=== PATIENT | female | born 1990 | race Caucasian/White ===

== ENCOUNTER 2019-04-29 17:44 | Emergency (ER) | payer MEDICAID ==
[~2019-04-29] VITALS: Ht 154.9 cm; Wt 56.0 kg
[2019-04-29] MEDS ORDERED: ACETAMINOPHEN 325MG TABLET PO PRN (21:30)
[2019-04-29 22:51] LABS: BASOPHILS % 0.3 % (0.0-2.0); EOSINOPHILS % 0.3 % (0.0-5.0); HEMATOCRIT. 37.8 % (36.0-48.0); HEMOGLOBIN. 12.5 g/dL (12.0-16.0); LYMPHOCYTES % 32.3 % (20.0-50.0); MEAN CORPUSCULAR HEMOGLOBIN 29.2 pg (28.0-32.0); MEAN CORPUSCULAR VOLUME 88.3 fL (81.0-99.0); MEAN PLATELET VOLUME 9.7 fl (7.4-10.4); MONOCYTES % 7.4 % (2.0-8.0); NEUTROPHILS % 59.7 % (40.0-76.0); PLATELET 234 x1000/uL (130-400); RED BLOOD CELL COUNT 4.27 mill/uL (4.2-5.4); RED CELL DISTRIBUTION WIDTH 13.2 % (11.6-14.6)
[2019-04-29 22:54] LABS: CHLORIDE 107 mEq/L (98-107)
[2019-04-29 22:58] LABS: CLARITY URINE CLOUDY (CLEAR); COLOR URINE YELLOW (YELLOW); KETONES URINE 1+ (NEGATIVE); LEUKOCYTE ESTERASE URINE 3+ (NEGATIVE); NITRITE URINE NEGATIVE (NEGATIVE); OCCULT BLOOD URINE TRACE (NEGATIVE); PROTEIN URINE NEGATIVE (NEGATIVE); SPECIFIC GRAVITY URINE 1.022 (1.005-1.030); UROBILINOGEN URINE 0.2 E.U./dL (0.2-1.0)
[2019-04-29] MEDS ORDERED: POTASSIUM CHLORIDE 20MEQ TABLET SR PO ONE (23:15)
[2019-04-29] MEDS ORDERED: NITROFURANTOIN 100MG M/M CAPSULE PO ONE (23:15)
[2019-04-29 23:18] LABS: B-HCG QUANTITATIVE 40898 mIU/mL (<3)
[2019-04-30 02:24] VITALS: BP 107/72
== END 2019-04-30 03:02 | disposition home or self-care (01) ==
LOC: ER 17:44
DX: O26.891 Other specified pregnancy related conditions, first trimester (principal); O23.11 Infections of bladder in pregnancy, first trimester; R10.9 Unspecified abdominal pain; E87.6 Hypokalemia; Z3A.01 Less than 8 weeks gestation of pregnancy
CPT/HCPCS: 36415; 76801; 76817; 80053; 81003; 84702; 85025; 86850; 86900; 86901; 99284; Z7610